=== PATIENT | male | born 1960 | race Hispanic/Latino ===

== ENCOUNTER 2019-02-07 14:08 | Emergency (ER) | payer SELFPAY ==
--- NOTE | 2019-02-07 14:21 | Emergency Department Report ---
ED Seizure HPI - General Stated Complaint: SEIZURE Time Seen by Provider: 02/07/19 14:15 - History of Present Illness Initial Comments: Patient is a 58-year-old male past medical history of seizure disorder who presents status post seizure. Patient reports that he takes 600 mg up a "twice a day and he's been off it for several months. He states that he did not take his medication because he felt like he didn't need to. Patient had a seizure today. He denies having any pain only a slight amount nausea. Patient denies having any suicidal or any homicidal ideation. Patient smokes about a pack per day. - Related Data Home Medications Medication Instructions Recorded Confirmed Last Taken FLUoxetine HCL [PROzac] 40 mg PO QDAY 02/07/19 02/07/19 Unknown QUEtiapine [SEROquel] 200 mg PO DAILY 02/07/19 02/07/19 Unknown Previous Rx's Medication Instructions Recorded Last Taken Type Divalproex ER [DepaKOTE ER] 500 mg PO QDAY #30 tablet 02/07/19 Unknown Rx Allergies Allergy/AdvReac Type Severity Reaction Status Date / Time No Known Allergies Allergy Unverified 02/07/19 14:33 ED Review of Systems ROS: Stated complaint: SEIZURE Other details as noted in HPI Constitutional: denies: chills, fever Eyes: denies: eye pain, eye discharge, vision change ENT: denies: ear pain, throat pain Respiratory: denies: cough, shortness of breath, wheezing Cardiovascular: denies: chest pain, palpitations Endocrine: no symptoms reported Gastrointestinal: denies: abdominal pain, nausea, diarrhea Genitourinary: denies: urgency, dysuria Musculoskeletal: denies: back pain, joint swelling, arthralgia Skin: denies: rash, lesions Neurological: as per HPI. denies: headache, weakness, paresthesias Psychiatric: denies: anxiety, depression Hematological/Lymphatic: denies: easy bleeding, easy bruising ED Past Medical Hx - Medications Home Medications: Home Medications Medication Instructions Recorded Confirmed Last Taken Type Divalproex ER [DepaKOTE ER] 500 mg PO QDAY #30 tablet 02/07/19 Unknown Rx FLUoxetine HCL [PROzac] 40 mg PO QDAY 02/07/19 02/07/19 Unknown History QUEtiapine [SEROquel] 200 mg PO DAILY 02/07/19 02/07/19 Unknown History ED Physical Exam - General General appearance: alert, in no apparent distress - Head Head exam: Present: atraumatic, normocephalic - Eye Eye exam: Present: normal appearance - ENT ENT exam: Present: mucous membranes moist - Neck Neck exam: Present: normal inspection - Respiratory Respiratory exam: Present: normal lung sounds bilaterally. Absent: respiratory distress - Cardiovascular Cardiovascular Exam: Present: regular rate, normal rhythm. Absent: systolic murmur, diastolic murmur, rubs, gallop - GI/Abdominal GI/Abdominal exam: Present: soft, normal bowel sounds - Rectal Rectal exam: Present: deferred - Extremities Exam Extremities exam: Present: normal inspection - Back Exam Back exam: Present: normal inspection - Neurological Exam Neurological exam: Present: alert, oriented X3 - Psychiatric Psychiatric exam: Present: normal affect, normal mood - Skin Skin exam: Present: other (bruises and abrasions ). Absent: rash ED Course Vital Signs 02/07/19 02/07/19 14:19 15:47 Temperature 97.8 F Pulse Rate 99 H 88 Respiratory 12 Rate Blood Pressure 156/100 Blood Pressure 170/92 [Left] O2 Sat by Pulse 97 Oximetry ED Medical Decision Making - Lab Data Result diagrams: 02/07/19 14:21 02/07/19 14:21 - Medical Decision Making Medical diagnosis: Seizure disorder secondary to medication noncompliance Differential medical diagnosis: Anemia, electrolyte abnormality. I will get Depakote IV and I will get CBC and EMP Critical care attestation.: If time is entered above; I have spent that time in minutes in the direct care of this critically ill patient, excluding procedure time. ED Disposition Clinical Impression: Seizure Disposition: DC-01 TO HOME OR SELFCARE Is pt being admited?: No Does the pt Need Aspirin: No Condition: Stable Instructions: Recurrent Seizures Adult (ED) Prescriptions: Divalproex ER [DepaKOTE ER] 500 mg PO QDAY #30 tablet Referrals: NINOSKA PRICE MD [Primary Care Provider] - 3-5 Days
[2019-02-07 14:51] LABS: Eosinophils # (Auto) 0.1 K/mm3 (0.0-0.4); Eosinophils % (Auto) 2.3 % (0.0-4.3); Hematocrit 37.7 % (35.5-45.6); Hemoglobin 13.1 gm/dl (11.8-15.2); Lymphocytes # (Auto) 0.9 K/mm3 (1.2-5.4); Lymphocytes % (Auto) 20.6 % (13.4-35.0); Mean Corpuscular HGB Conc 35 % (32-34); Mean Corpuscular Volume 101 fl (84-94); Monocytes # (Auto) 0.4 K/mm3 (0.0-0.8); Monocytes % (Auto) 8.1 % (0.0-7.3); Platelet Count 210 K/mm3 (140-440); Red Blood Count 3.74 M/mm3 (3.65-5.03); Red Cell Distribution Width 15.9 % (13.2-15.2)
[2019-02-07] MEDS ORDERED: DepaCON 500 MG in NACL 0.9% 100 ML IV ONE (15:00)
[2019-02-07 15:12] LABS: Alanine Aminotransferase 15 units/L (7-56); BUN/Creatinine Ratio 9; Blood Urea Nitrogen 10 mg/dL (9-20); Calcium 8.6 mg/dL (8.4-10.2); Hemolysis Index 14
[2019-02-07 16:31] VITALS: BP 161/88
== END 2019-02-07 16:54 | disposition home or self-care (01) ==
LOC: ED 14:08
DX: R56.9 Unspecified convulsions (principal)
CPT/HCPCS: 36415; 80053; 85025; 96365; 96366